=== PATIENT | male | born 1955 | race Caucasian/White ===

== ENCOUNTER 2017-06-20 14:46 | Emergency (ER) | payer OTHER ==
[~2017-06-20] VITALS: Ht 188 cm; Wt 101.2 kg
[~2017-06-20 14:46] MED LIST: AUGMENTIN875 MG PO; NOHOMEMEDS
[2017-06-20] MEDS ORDERED: AUGMENTIN875 MG PO (16:47)
[2017-06-20 18:32] VITALS: BP 140/70
== END 2017-06-20 18:33 | disposition home or self-care (01) ==
LOC: EME 14:46
DX: S61.231A Puncture wound without foreign body of left index finger without damage to nail, initial encounter (principal); L08.9 Local infection of the skin and subcutaneous tissue, unspecified; W55.01XA Bitten by cat, initial encounter; Z23 Encounter for immunization; Z20.3 Contact with and (suspected) exposure to rabies; Z29.14 Encounter for prophylactic rabies immune globulin
CPT/HCPCS: 99281; 99284; J0295; J1885; J7050

== ENCOUNTER 2017-07-04 10:03 | Emergency (ER) | payer OTHER ==
[~2017-07-04] VITALS: Ht 185.4 cm; Wt 101.0 kg
[2017-07-04 11:29] VITALS: BP 119/68
== END 2017-07-04 11:30 | disposition home or self-care (01) ==
LOC: EME 10:03
PROC: 3E0234Z Introduction of Serum, Toxoid and Vaccine into Muscle, Percutaneous Approach (ICD-10-PCS; principal; 2017-07-04)
DX: Z20.3 Contact with and (suspected) exposure to rabies (principal); Z23 Encounter for immunization
CPT/HCPCS: 99281; 99284